=== PATIENT | male | born 1990 | race Caucasian/White ===

== ENCOUNTER 2020-01-02 12:07 | Emergency (ER) | payer BC, SELFPAY ==
[2020-01-02 12:08] VITALS: BP 135/79; PULSE 83; RESP 18; TEMP 36.3; O2SAT 96; BMI 29.8
--- NOTE | 2020-01-02 12:27 | ED.VIS.GEN ---
History of Present Illness Chief Complaint: Back Informant: Patient Onset: Yesterday Context: Gradual Onset Timing: Continuous Current Severity: Moderate Maximum Severity: Severe Narrative: The patient is an otherwise healthy 29-year-old male who presents with left low back pain that radiates down his left leg. He states that started yesterday. He states he had a dull ache in his low back. Today, he noticed that the pain seems to go down his left leg to his heel. He describes it as a burning pain. He states it is worse if he bends or twists. He said no problem urinating or moving his bowels. He denies any numbness in his groin. He is had no fever or chills. He denies any history of IV drug abuse. He denies any trauma. Prior similar symptoms: No Recent Illness/Hospitalization: No Past Medical History - Allergies and Home Meds Allergies/Adverse Reactions: Allergies No Known Allergies Allergy (Verified 01/02/20 12:09) Primary Care Physician: NOT,DEFINED [NON-STAFF] - Prior records reviewed: Yes Past Medical History: None Surgical History: no surgical history Smoking Status: Current every day smoker Review of Systems General: Denies: Chills, Fever, Sweats Eyes: Denies: Visual changes - bilaterally, Diplopia ENT: Denies: Rhinorrhea, Sore throat Cardiovascular: Denies: Chest pain, Palpitations Respiratory: Denies: Dyspnea, Cough, Dyspnea on exertion Gastrointestinal: Denies: Abdominal pain, Nausea, Vomiting, Diarrhea, Melena, Hematochezia Genitourinary: Denies: Dysuria, Hematuria, Frequency Musculoskeletal: Reports: Back pain. Denies: Extremity Pain Skin: Denies: Rash, Wounds Neurological: Reports: Parasthesia. Denies: Headache, Weakness, Numbness Physical Exam Vital Signs/Narrative: Vital Signs Temp Pulse Resp BP Pulse Ox 01/02/20 12:08 97.3 F L 83 18 135/79 H 96 Inital Vital Signs reviewed: Yes General: Well nourished, Well developed, No Acute Distress Head: Normocephalic, Atraumatic Eyes: Perrl, EOMI ENT: Moist mucous membranes, No rhinorrhea Neck: Supple, Nontender Cardiovascular: Regular rate, Regular rhythm, No murmurs Respiratory: No distress, CTA bilaterally, Chest nontender Abdomen: Soft, Nontender, Nondistended, Normal bowel sounds Back: Normal Inspection, - - Paraspinal tenderness on the leftt. Positive straight leg raise on the left. Normal pulses and reflexes of the lower extremity. Extremities: Nontender, No edema Skin: Normal color, No rash Neurological: Alert, Oriented x3, Cranial nerves II-XII grossly intact, Normal Strength, Normal Sensation Psychological: Normal affect, Normal Mood Diagnostic/Tx/Re-eval - Medical Decision Making The patient presents with low back pain with radiculopathy. He has had no red flag symptoms. He has had no trauma. He has no weakness. There is normal dorsiflexion, plantar flexion, and extensor hallucis longus. He is a normal steady gait. I am going to treat the patient with antispasmodics, anti-inflammatories, and a short course of analgesics. He will be given outpatient follow-up for reevaluation within a week. He was also counseled on concerning symptoms and reasons to return. Impression 1. Left low back pain with radiculopathy ED Disposition - Plan for ED Patient: Instructions: ED LUMBAR RADICULOPATHY Prescriptions: cycloBENZAPRine HCl [Flexeril] 10 mg PO TID PRN #20 tab PRN Reason: Muscle Spasm Prescription Printed MethylPREDNISolone DosePak [Medrol DosePak] 4 mg PO UD #1 box Prescription Printed Hydrocodone Bitart/Apap 5-325 [[place] 5MG-325MG] 1 tab PO Q6H PRN PRN 3 Days #10 tab PRN Reason: Pain Prescription Printed Referrals: William Day MD [STAFF PHYSICIAN] -
[2020-01-02] MEDS: Naproxen 500 MG Tablet PO (13:45)
[2020-01-02] MEDS: HYDROcodone Bitartrate/Apap 5/325 Tablet PO (13:45)
[2020-01-02 13:55] VITALS: PULSE 88; RESP 17; O2SAT 98
== END 2020-01-02 13:56 | disposition home or self-care (01) ==
LOC: ED 12:29
PROVIDERS: Emergency Provider Emergency Medicine
DX: M54.16 Radiculopathy, lumbar region (principal); F17.200 Nicotine dependence, unspecified, uncomplicated
CPT/HCPCS: 99283

== ENCOUNTER 2022-02-13 12:22 | Emergency (ER) | payer OTHER, SELFPAY ==
[2022-02-13 12:23] VITALS: BP 157/117; PULSE 107; RESP 18; TEMP 36.2; O2SAT 98; BMI 35.3
--- NOTE | 2022-02-13 12:35 | CT_ITS ---
STUDY: CT SOFT TISSUE NECK WITH CONTRAST REASON FOR EXAM: Male, 31 years old. pain, swelling RADIATION DOSAGE (If Supplied By Facility): CTDIvol = ( 17.57 ) mGy, DLP = ( 487.17 ) mGycm TECHNIQUE: The patient was scanned in a multi-detector CT scanner. High resolution transaxial imaging was performed following intravenous administration of IV 75mL Isovue-370. Sagittal and coronal images were reconstructed. Individualized dose optimization techniques were used for this CT. COMPARISON: None. FINDINGS: Normal bilateral parotid glands. Normal bilateral oyster grader spaces. Normal bilateral parapharyngeal spaces. Normal bilateral carotid spaces. Normal bilateral sublingual and submandibular glands and spaces. Normal visualized nasopharynx. Normal retropharyngeal space. Normal perivertebral space. Normal visualized bilateral faucial tonsils. The visualized tongue, tongue base and oropharynx are normal. There are minimally enlarged lymph nodes of the neck, with preservation of normal ana architecture, consistent with a reactive lymph hyperplasia. Mild subcutaneous edema and skin thickening is present over the lower aspect of the face likely due to developing facial cellulitis or reactive inflammation. No subcutaneous or intramuscular or parapharyngeal abscess is present. No malignant masses are seen. Mild reactive enhancement of the posterior lingual tonsillar tissue noted. No visualized cortical erosion or bony destruction of the mandible or the dental structures by CT criteria. Direct visualization of the dental structures can be performed to determine if there is a cavity or obvious source of infection not seen by CT. There is no demonstrated solid or cystic mass lesion. There is no abnormal contrast enhancement. Normal epiglottis, bilateral vallecula and hypopharynx. The pre-epiglottic and paraglottic adipose spaces are normal. Normal visualized bilateral piriform sinuses, aryepiglottic folds, vocal cords, and arytenoid-cricoid articulations. Normal subglottic trachea. Normal bilateral lobes of the thyroid gland. Normal visualized pulmonary apices. Normal visualized paranasal sinuses. Normal visualized cervical spine. CT/Soft Tissue Neck WITH Contrast IMPRESSION: 1. Mild subcutaneous edema and skin thickening is present over the lower aspect of the face likely due to developing facial cellulitis or reactive inflammation. 2. Reactive subcentimeter lymphadenopathy throughout the neck either due to infection or inflammation, however no abscess is present in the subcutaneous fat or muscles or parapharyngeal mucosa, and no subcutaneous air is present. 3. Mild reactive enhancement of the posterior lingual tonsillar tissue noted. No visualized cortical erosion or bony destruction of the mandible or the dental structures by CT criteria. 4. Direct visualization of the dental structures can be performed to determine if there is a cavity or obvious source of infection not seen by CT. Electronically Signed: Yuniel Bianchi MD at 14:17 EDT ,
--- NOTE | 2022-02-13 12:36 | EDS_ITS ---
HPI History of Present Illness Chief Complaint: Dental Detail of Chief Complaint: Right facial swelling Informant: patient Onset/Context/Timing Onset: Days Context: Gradual Onset Current Severity: Moderate Maximum Severity: Moderate Narrative Narrative: Patient presents secondary to right-sided facial swelling and pain. It started bothering him on Monday and got worse on Monday. He feels that the right side of his face is swollen with pressure down into his neck and up to his eye. He has not noted a fever at home. He did take 600 mg of ibuprofen just prior to arrival. PFSH PFS Medical History no medical history no medical history Home Medications cyclobenzaprine 10 mg tablet 10 mg PO TID PRN Muscle Spasm #20 tabs 01/02/20 [Rx Last Taken Unknown] methylprednisolone 4 mg tablets in a dose pack 4 mg PO UD ##1 01/02/20 [Rx Last Taken Unknown] clindamycin HCl 150 mg capsule 300 mg PO 4X/DAY #80 caps 02/13/22 [Rx Last Taken Unknown] naproxen 500 mg tablet (Naprosyn) 500 mg PO BID PRN pain #20 tabs 02/13/22 [Rx Last Taken Unknown] Allergy/AdvReac Type Severity Reaction Status Date / Time No Known Allergies Allergy Verified 02/13/22 12:23 Social History Smoking Status: Current every day smoker tobacco type: cigarettes ROS ROS ED Constitutional Constitutional ED: Denies chills or fever(s) Eyes Eyes: Denies change in vision or discharge from eye(s) ENT ENT ED: Reports sore throat and other Details: Dental pain, facial swelling ; Denies discharge from eye(s) or rhinorrhea Cardiovascular Cardiovascular: Denies chest pain or palpitations Respiratory/Chest Respiratory/Chest: Reports dyspnea; Denies cough Gastrointestinal Gastrointestinal: Denies abdominal pain, diarrhea, nausea or vomiting Musculoskeletal Musculoskeletal: Denies back pain or extremity pain Integumentary Denies Abrasions or rash Neurologic Neurologic: Denies headache(s) or weakness Allergic/Immunologic Allergic/Immunologic ED: Denies lip swelling or urticaria EXAM Physical Exam Narrative Exam Narrative: Patient sitting upright in bed no acute distress. No obvious facial edema on inspection. Patient speaks with a strong voice and is tolerating secretions well. Const Vital Signs: 02/13/22 12:23 02/13/22 12:55 02/13/22 12:55 Temperature 97.1 F L 97.1 F L Temperature Source Temporal Temporal Pulse Rate 107 H 107 H Respiratory Rate 18 18 Blood Pressure 157/117 H 157/114 H 157/114 H Blood Pressure Mean 130 128 128 Pulse Ox 98 98 Oxygen Delivery Method Room Air Room Air Room Air Positive well nourished and well developed General Appearance ED: well developed HEENT Reports moist mucous membranes HEENT Narrative: Patient limited in ability to open mouth secondary to pain. No obvious dental cavities appreciated but inspection is very limited. No tongue edema. No evidence of Nikolas's angina. Posterior pharyngeal examination reveals right tonsillar enlargement but uvula remains midline. No obvious exudate. Eyes PERRL and EOMs intact bilaterally Chest Wall inspection of chest normal and palpation of chest normal Resp normal respiratory effort and clear to auscultation bilaterally Cardio regular rate and regular rhythm GI normal to inspection, nondistended, normoactive bowel sounds Extremity normal to inspection Neuro oriented x3 and no sensory deficits noted Motor Exam: strength 5/5 throughout Psych mental status grossly normal Skin no rashes or lesions noted MDM MDM MDM Narrative Medical decision making narrative: Patient did take ibuprofen just prior to arrival. Lab work obtained along with a CT scan of the neck. Lab Data Attestation: I reviewed the patient's lab results. Labs: Laboratory Results - last 24 hr 02/13/22 02/13/22 12:50 12:50 WBC 10.3 RBC 5.14 Hgb 15.5 Hct 45.6 MCV 88.7 MCH 30.2 MCHC 34.0 RDW Std Deviation 42.5 RDW Coeff of Terence 13.1 Plt Count 233 MPV 10.2 Immature Gran % (Auto) 2.400 H Neut % (Auto) 60.6 Lymph % (Auto) 20.7 [place] % (Auto) 11.9 H Eos % (Auto) 3.5 Baso % (Auto) 0.9 Absolute Neuts (auto) 6.3 Absolute Lymphs (auto) 2.14 Nucleated RBC % 0 Sodium 141 Potassium 3.9 Chloride 110 H Carbon Dioxide 24.0 Anion Gap 7 BUN 12 Creatinine 0.92 Estim Creat Clear Calc 125.05 Est GFR (MDRD) Af Amer 125 Est GFR (MDRD) Non-Af 103 BUN/Creatinine Ratio 13.1 Glucose 108 H Calcium 9.8 Radiography Diagnostic Testing: Clinical Impression(s) from Imaging Studies Soft Tissue Neck CT 02/13/22 12:35 IMPRESSION: 1. Mild subcutaneous edema and skin thickening is present over the lower aspect of the face likely due to developing facial cellulitis or reactive inflammation. 2. Reactive subcentimeter lymphadenopathy throughout the neck either due to infection or inflammation, however no abscess is present in the subcutaneous fat or muscles or parapharyngeal mucosa, and no subcutaneous air is present. 3. Mild reactive enhancement of the posterior lingual tonsillar tissue noted. No visualized cortical erosion or bony destruction of the mandible or the dental structures by CT criteria. 4. Direct visualization of the dental structures can be performed to determine if there is a cavity or obvious source of infection not seen by CT. Electronically Signed: Yuniel Bianchi MD at 14:17 EDT , Treatment and Re-Evaluation Narrative: Lab work is unremarkable. CT scan reveals mild edema with skin thickening over the lower face likely due to developing cellulitis or reactive inflammation. There is no evidence of focal abscess. Patient be treated with a course of clindamycin. I will also write him prescription strength naproxen. He was advised not to take NSAIDs in addition to this. He has a dentist to follow-up with. Return instructions are provided. Discharge Plan Triage Chief Complaint: Dental ED Provider: Dilcia Dominguez Dx/Rx/DC Orders Clinical Impression: Odontalgia, Facial swelling Instructions: ED Dental Abscess Facial Cellulitis Prescriptions: New clindamycin HCl 150 mg capsule 300 mg PO 4X/DAY Qty: 80 0RF naproxen [Naprosyn] 500 mg tablet 500 mg PO BID PRN (Reason: pain) Qty: 20 0RF No Action cyclobenzaprine 10 MG tablet 10 mg PO TID PRN (Reason: Muscle Spasm) Qty: 20 0RF methylprednisolone 4 MG tablets,dose pack 4 mg PO UD Qty: 1 0RF Primary Care Provider: Nirmal Ballesteros Referrals: Care Physician,No Primary [Non-Staff] - Activity Restrictions/Additional Instructions: Follow-up with your dentist in the next 1 to 2 weeks. Disposition Disposition: Home, Self Care
[2022-02-13 12:55] VITALS: BP 157/114; PULSE 107; RESP 18; TEMP 36.2; O2SAT 98
[2022-02-13 13:02] LABS: Absolute Lymphocyte Count 2.14 X10^3/uL (0.83-4.51); Absolute Neutrophil Count 6.3 X10^3/uL (2.0-7.7); Basophil# 0.09 X10^3/uL; Basophil% 0.9 % (0-1); Eosinophil# 0.36 X10^3/uL; Eosinophils% 3.5 % (0-5); Hematocrit 45.6 % (40-54); Hemoglobin 15.5 g/dL (13.0-16.5); Lymphocyte # 2.14 X10^3/ul (0.83-4.51); Lymphocyte % 20.7 % (19-41); Mean Corpuscular Hgb 30.2 pg (27.0-32.0); Mean Corpuscular Volume 88.7 fL (80-94); Mean Platelet Vol. 10.2 fl (6.2-12.0); Monocyte# 1.23 X10^3/uL; Monocyte% 11.9 % (0-10); NRBC Flagged by Analyzer 0 % (0-5); Neutrophil # 6.25 X10^3/uL (2.7-7.7); Neutrophil % 60.6 % (47-70); Platelet Count 233 K/mm3 (150-450); RBC Distribution Width CV 13.1 % (11.6-14.6); RBC Distribution Width SD 42.5 fl (35.1-43.9); Red Blood Count 5.14 M/mm3 (4.6-6.2); White Blood Count 10.3 K/mm3 (4.4-11.0)
[2022-02-13 13:14] LABS: Anion Gap 7 (5-15); BUN 12 mg/dL (7-18); BUN/Creat Ratio 13.1 RATIO (10-20); Calcium,Total 9.8 mg/dL (8.5-10.1); Chloride 110 mmol/L (98-107); Creatinine, Serum 0.92 mg/dL (0.70-1.30); EST Glomerular Filtration Rate 103 mL/min (>60); Est Glom Filt Rate - Afr Amer 125 mL/min (>60); Estimated Creatinine Clearance 125.05 ml/min; Glucose 108 mg/dL (74-106); Potassium 3.9 mmol/L (3.5-5.1); Sodium Level 141 mmol/L (136-145)
[2022-02-13] MEDS: Clindamycin HCl 150 MG Capsule 300 MG PO (14:30)
== END 2022-02-13 14:33 | disposition home or self-care (01) ==
PROVIDERS: Emergency Provider Emergency Medicine; PCP Family Medicine; Visit Provider Emergency Medicine
DX: K08.89 Other specified disorders of teeth and supporting structures (principal); R22.0 Localized swelling, mass and lump, head; F17.210 Nicotine dependence, cigarettes, uncomplicated
CPT/HCPCS: 70491; 80048; 85025; 99283; Q9967; A4216

== ENCOUNTER 2024-09-24 15:28 | Emergency (ER) | payer OTHER, SELFPAY ==
[2024-09-24 15:29] VITALS: BP 164/103; PULSE 107; RESP 16; TEMP 36.9; O2SAT 98; BMI 26.9
--- NOTE | 2024-09-24 15:40 | EKG12_ITS ---
Test Reason : palps Blood Pressure : */* mmHG Vent. Rate : 93 BPM Atrial Rate : 93 BPM P-R Int : 134 ms QRS Dur : 76 ms QT Int : 368 ms P-R-T Axes : 76 46 50 degrees QTcB Int : 457 ms Sinus rhythm with marked sinus arrhythmia Otherwise normal ECG Confirmed by Wolfgang Hatch ([id number]), video effects editor MAKENZIE DE LA CRUZ ([id number]) on 09/25/2024 7:50:45 AM Referred By: Lisandra Confirmed By: Wolfgang Hatch
--- NOTE | 2024-09-24 15:40 | RAD_ITS ---
PROCEDURE: CHEST 1 VIEW (PORTABLE) 09/24/2024 REASON FOR EXAM: 33-year-old male, CHEST BURNING, PALPITATION TECHNIQUE: Frontal view of the chest. COMPARISON: None. FINDINGS: Hardware: None. Heart: The heart size is normal. Lungs: No focal consolidation, pleural effusion or pneumothorax. Bones: The bones are unremarkable. RAD/Chest 1 View (Portable) IMPRESSION: Negative Chest. Reading Location: [id number]
--- NOTE | 2024-09-24 15:41 | EDS_ITS ---
HPI History of Present Illness Chief Complaint: Palpitations Narrative Narrative: 33-year-old male presents with elevated heart rate and heart palpitations that has had for the last 12 to 24 hours. He states that they were actually getting better, but seem to have worsened over time. On his own heart rate monitor, at times it was 71 which is his normal rate, however it has been above 100 when he counts it with the clock. He relates history that over the last week he recently had norovirus. There was a time where he became very lightheaded, and had a syncopal episode and had reported seizure as well. He states that he is worried about his potassium. [facility] Medical History Gout Hypertension Home Medications ?Medication ?Instructions ?Recorded ?Last Taken ?Type naproxen 500 mg tablet (Naprosyn) 500 mg PO BID PRN pa in #20 tabs 02/13/22 Unknown Rx acetaminophen 325 mg tablet 650 mg PO Q4H PRN 09/20/24 Unknown History (Tylenol) mupirocin 2 % topical ointment 1 applic topical BID #1 5 grams 09/20/24 Unknown Rx sulfamethoxazole 800 1 tab PO Q12H 7 days #14 tab s 09/20/24 Unknown Rx mg-trimethoprim 160 mg tablet (Bactrim DS) Allergy/AdvReac Type Severity Reaction Status Date / Time No Known Allergies Allergy Verified 09/24/24 15:30 Family History Other Diabetes Gout Social History Smoking Status: Current every day smoker tobacco type: cigarettes ROS ROS ED ROS Narrative Constitutional: No fever, no chills. Cardiovascular: No chest pain. Positive palpitations. No pedal edema. Respiratory: No cough, no shortness of breath. Abdominal: No abdominal pain. Recently had nausea, vomiting, and diarrhea with norovirus-resolved Genitourinary: No dysuria. No hematuria. Musculoskeletal: No myalgias. No arthralgias. Neurologic: No headaches. . Positive lightheadedness with reported syncopal episode/seizure. Skin: No rash. No change in color. Psychiatric: No depression. Positive anxiety. EXAM Physical Exam Narrative Exam Narrative: Afebrile. Vital signs noted. Nontoxic-appearing. Cardiovascular examination reveals a regular rate and rhythm. Lungs are clear to auscultation bilaterally. Abdomen is soft, nontender, with positive bowel sounds. No guarding or rebound. Neurological examination is nonfocal, nonlateralizing. Const Vital Signs: 09/24/24 15:29 09/24/24 16:29 09/24/24 16:57 Temperature 98.4 F Temperature Source Oral Pulse Rate 107 H 74 63 Respiratory Rate 16 19 H 19 H Blood Pressure 164/103 H 126/83 H 136/90 H Blood Pressure Mean 123 97 105 Pulse Ox 98 100 98 Oxygen Delivery Method Room Air Room Air Room Air 09/24/24 17:31 Temperature 98.2 F Temperature Source Pulse Rate 78 Respiratory Rate 19 H Blood Pressure 138/77 H Blood Pressure Mean 97 Pulse Ox 99 Oxygen Delivery Method MDM MDM MDM Narrative Medical decision making narrative: Given his recent reported syncope with norovirus infection, concern is for intravascular volume depletion versus dehydration versus other electrolyte abnormality. His neurological examination is currently nonfocal and nonlateralizing. I do not feel that he needs a CT of the brain. He has had intermittent tachycardia and was initially tachycardic in triage. He may be having anxiety reaction as well. I will check a CBC, CMP, magnesium, and a lipase as he stated that he felt like he was having abdominal pain previously during his norovirus infection. EKG was obtained and interpreted by myself independently as normal sinus rhythm with sinus arrhythmia at [address] changes. No STEMI. I reviewed his laboratory work and he has normal white count of 9.7 but hemoglobin slightly elevated at 17.2 consistent with mild hemoconcentration/dehydration, hematocrit normal at 51.2, platelet count 304. Sodium normal at 138 with potassium 4.1, chloride 103. CO2 is low at 18.7 which may be secondary to hyperventilation. Creatinine slightly elevated at 1.33. LFTs are grossly normal. Lipase normal at 27. Hence, I doubt pancreatitis. Calcium normal at 10.8. Upon repeat examination, patient feeling slightly improved after initial partial bolus of IV fluids. The rest will be running and he will follow-up with his primary care provider as I do not feel that he requires observation or admission at this time. I feel he could be discharged to follow-up. Return instructions to the emergency department reviewed. Disposition is discharged home in stable condition. History & Record Review Discussion w/independent historian: Patient Lab Data Attestation: I reviewed the patient's lab results. Labs: Laboratory Results - last 24 hr 09/24/24 15:49 WBC 9.7 RBC 6.41 H Hgb 17.2 H Hct 51.2 MCV 79.9 L MCH 26.8 L MCHC 33.6 RDW Std Deviation 42.7 RDW Coeff of Terence 14.9 H Plt Count 304 MPV 10.2 Immature Gran % (Auto) 0.400 Neut % (Auto) 46.4 L Lymph % (Auto) 39.3 [place] % (Auto) 10.5 H Eos % (Auto) 2.5 Baso % (Auto) 0.9 Absolute Neuts (auto) 4.5 Absolute Lymphs (auto) 3.81 Nucleated RBC % 0 Sodium 138 Potassium 4.1 Chloride 103 Carbon Dioxide 18.7 L Anion Gap 16 H BUN 18 Creatinine 1.33 H Estim Creat Clear Calc 84.92 Est GFR (MDRD) Non-Af 73 BUN/Creatinine Ratio 13.3 Glucose 94 Calcium 10.8 Magnesium 2.0 Total Bilirubin 1.06 AST 24 ALT 30 Alkaline Phosphatase 62 Total Protein 8.4 Albumin 5.1 H Globulin 3.4 Albumin/Globulin Ratio 1.5 Lipase 27 Radiography Diagnostic Testing: Clinical Impression(s) from Imaging Studies Chest X-Ray 09/24/24 15:40 IMPRESSION: Negative Chest. Reading Location: [facility] Discharge Plan Triage Chief Complaint: Palpitations ED Provider: Juvenal Fry Dx/Rx/DC Orders Clinical Impression: Palpitations, Acute kidney injury, Mild dehydration Instructions: ED Dehydration (Adult), ED Palpitations Prescriptions: No Action acetaminophen [Tylenol] 325 mg tablet 650 mg PO Q4H PRN sulfamethoxazole-trimethoprim [Bactrim DS] 800-160 mg tablet 1 tab PO Q12H 7 Days Qty: 14 0RF mupirocin 2 % ointment 1 applic topical BID Qty: 15 0RF naproxen [Naprosyn] 500 mg tablet 500 mg PO BID PRN (Reason: pain) Qty: 20 0RF Stand Alone Forms: ED Work / School Excuse Primary Care Provider: Nirmal Ballesteros Referrals: Nirmal Ballesteros MD [Primary Care Provider] - 3-5 Days if not improving Activity Restrictions/Additional Instructions: Drink plenty of oral fluids. Follow-up with your primary care provider. Print Language: Salvadorean Disposition Disposition: Home, Self Care Discharge Date/Time: 09/24/24 17:32
[2024-09-24 16:00] LABS: Absolute Lymphocyte Count 3.81 X10^3/uL (0.83-4.51); Absolute Neutrophil Count 4.5 X10^3/uL (2.0-7.7); Basophil# 0.09 X10^3/uL; Basophil% 0.9 % (0-1); Eosinophil# 0.24 X10^3/uL; Eosinophils% 2.5 % (0-5); Hematocrit 51.2 % (40-54); Hemoglobin 17.2 g/dL (13.0-16.5); Lymphocyte # 3.81 X10^3/ul (0.83-4.51); Lymphocyte % 39.3 % (19-41); Mean Corp Hgb Conc 33.6 g/dL (32-36); Mean Corpuscular Hgb 26.8 pg (27.0-32.0); Mean Corpuscular Volume 79.9 fL (80-94); Mean Platelet Vol. 10.2 fl (6.2-12.0); Monocyte# 1.02 X10^3/uL; Monocyte% 10.5 % (0-10); NRBC Flagged by Analyzer 0 % (0-5); Neutrophil # 4.49 X10^3/uL (2.7-7.7); Neutrophil % 46.4 % (47-70); Platelet Count 304 K/mm3 (150-450); RBC Distribution Width CV 14.9 % (11.6-14.6); RBC Distribution Width SD 42.7 fl (35.1-43.9); Red Blood Count 6.41 M/mm3 (4.6-6.2); White Blood Count 9.7 K/mm3 (4.4-11.0)
[2024-09-24 16:29] VITALS: BP 126/83; PULSE 74; RESP 19; O2SAT 100
[2024-09-24 16:30] LABS: ALB/GLOB Ratio 1.5 RATIO (0.9-2.4); AST(SGOT) 24 U/L (<=37); Alanine Aminotransfer ALT/SGPT 30 U/L (<=46); Albumin, Serum 5.1 g/dL (3.5-5.0); Alkaline Phosphatase 62 U/L (40-129); Anion Gap 16 (5-15); BUN 18 mg/dL (4-19); BUN/Creat Ratio 13.3 RATIO (10-20); Calcium,Total 10.8 mg/dL (7.6-11.0); Carbon Dioxide 18.7 mmol/L (21.0-32.0); Chloride 103 mmol/L (98-108); Creatinine, Serum 1.33 mg/dL (0.70-1.20); EST Glomerular Filtration Rate 73 (>60); Estimated Creatinine Clearance 84.92 ml/min (50-250); Globulin 3.4 g/dL (2.2-4.2); Glucose 94 mg/dL (70-99); Lipase 27 U/L (13-75); Potassium 4.1 mmol/L (3.3-5.1); Protein, Total 8.4 g/dL (5.9-8.4); Sodium Level 138 mmol/L (133-145); Total Bilirubin 1.06 mg/dL (0.00-1.30)
[2024-09-24] MEDS: 0.9% Normal Saline (1000mL) 1,000 ML 1000 ML IV (16:34)
[2024-09-24 16:57] VITALS: BP 136/90; PULSE 63; RESP 19; O2SAT 98
[2024-09-24 17:31] VITALS: BP 138/77; PULSE 78; RESP 19; TEMP 36.8; O2SAT 99
== END 2024-09-24 17:32 | disposition home or self-care (01) ==
PROVIDERS: Emergency Provider Emergency Medicine; PCP Family Medicine; Visit Provider Emergency Medicine
DX: R00.2 Palpitations (principal); N17.9 Acute kidney failure, unspecified; E86.0 Dehydration; F17.210 Nicotine dependence, cigarettes, uncomplicated
CPT/HCPCS: 71045; 80053; 83690; 83735; 85025; 93005; 96360; 99283; A4216